=== PATIENT | female | born 1985 | race Caucasian/White ===

== ENCOUNTER 2019-01-21 09:50 | Emergency (ER) | payer MEDICAID ==
[~2019-01-21] VITALS: Ht 167.6 cm; Wt 59.0 kg
[2019-01-21 10:31] VITALS: BP 129/76
[2019-01-21] MEDS ORDERED: HYDROCODONE/APAP 10/325MG 1 EA TABLET ONE (12:29)
[2019-01-21] MEDS ORDERED: HYDROCODONE/APAP 10/325MG 1 EA TABLET PO ONE (12:30)
[2019-01-21] MEDS ORDERED: TDAP [DIPH/PERTUSSIS/TET] 0.5 ML VIAL IM ONE ×2 (12:30)
--- NOTE | 2019-01-21 12:38 | NUR ---
For discharge [facility] given verbalized understanding. Home ambulatory Stable
== END 2019-01-21 12:50 | disposition home or self-care (01) ==
LOC: ER 09:50
DX: S02.2XXA Fracture of nasal bones, initial encounter for closed fracture (principal); J45.909 Unspecified asthma, uncomplicated; Z88.0 Allergy status to penicillin; Y04.8XXA Assault by other bodily force, initial encounter; Y93.89 Activity, other specified; Y92.89 Other specified places as the place of occurrence of the external cause; Y99.8 Other external cause status
CPT/HCPCS: 70160-TC; 90715